=== PATIENT | female | born 1975 | race American Indian/Alaskan Native ===

== ENCOUNTER 2021-06-02 22:09 | Emergency (ER) | payer MEDICAID ==
[2021-06-02] MEDS ORDERED: ADENOSINE 6 MG/2 ML INJ ONE ×2 (23:01→23:02)
[2021-06-02] MEDS ORDERED: SODIUM CHLORIDE 0.9% 1000 ML 1,000 ML IV ONE (23:11)
[2021-06-02] MEDS ORDERED: ADENOSINE 6 MG/2 ML INJ IV ONE (23:11)
--- NOTE | 2021-06-02 23:16 | Emergency Department Report ---
ED Palpitations HPI - General Chief Complaint: Arrhythmia/Palpitations Stated Complaint: SVT Time Seen by Provider: 06/02/21 22:32 Source: EMS Mode of arrival: Stretcher Limitations: No Limitations - History of Present Illness Initial Comments: 46-year-old female, history of SVT, presents to the ED with palpitations. Patient arrived via EMS. They were unable to give any medications en route due to being unable to establish an IV. Vagal maneuvers were attempted without success. Patient heart rate in the 180s-190s. Patient reports of palpitations for a couple of hours now. She denies any chest pain or shortness of breath. Patient states she had a first episode of SVT last month. She was admitted at that time and prescribed metoprolol. However, patient did not take the metoprolol. She did take the first dose when she initially began to feel her heart racing tonight. Patient states her family told her that she passed out at some point prior to EMS arrival. MD Complaint: "heart racing" -: hour(s) (3) Context: occured during rest Arrythmia History: SVT Associated Symptoms: syncope. denies: chest pain, shortness of breath Treatments Prior to Arrival: vagal maneuvers - Related Data Home Medications Medication Instructions Recorded Confirmed Last Taken Glipizide/Metformin HCl 1 each PO DAILY 04/26/21 04/26/21 Unknown [glipiZIDE-Metformin 2.5-250 mg] hydroCHLOROthiazide 12.5 mg PO DAILY 04/26/21 04/26/21 Unknown [Hydrochlorothiazide] lisinopriL [Zestril TAB] 40 mg PO QDAY 04/26/21 04/26/21 Unknown Previous Rx's Medication Instructions Recorded Last Taken Type Aspirin [Aspirin BABY CHEW TAB] 81 mg PO QDAY tab.chew 04/26/21 Unknown Rx Metoprolol Succinate [Toprol Xl] 25 mg PO DAILY #30 tab.er.24h 04/26/21 Unknown Rx Allergies Allergy/AdvReac Type Severity Reaction Status Date / Time No Known Allergies Allergy Verified 06/02/21 22:44 ED Review of Systems ROS: Stated complaint: SVT Other details as noted in HPI Comment: All other systems reviewed and negative Constitutional: denies: fever Respiratory: denies: shortness of breath Cardiovascular: palpitations. denies: chest pain ED Past Medical Hx - Past Medical History Hx Hypertension: Yes Hx Diabetes: Yes - Social History Smoking Status: Never Smoker Substance Use Type: None - Medications Home Medications: Home Medications Medication Instructions Recorded Confirmed Last Taken Type Aspirin [Aspirin BABY CHEW TAB] 81 mg PO QDAY tab.chew 04/26/21 Unknown Rx Glipizide/Metformin HCl 1 each PO DAILY 04/26/21 04/26/21 Unknown History [glipiZIDE-Metformin 2.5-250 mg] Metoprolol Succinate [Toprol Xl] 25 mg PO DAILY #30 tab.er.24h 04/26/21 Unknown Rx hydroCHLOROthiazide 12.5 mg PO DAILY 04/26/21 04/26/21 Unknown History [Hydrochlorothiazide] lisinopriL [Zestril TAB] 40 mg PO QDAY 04/26/21 04/26/21 Unknown History ED Physical Exam - General Limitations: No Limitations General appearance: alert, in no apparent distress - Head Head exam: Present: atraumatic, normocephalic - Eye Eye exam: Present: normal appearance, EOMI - ENT ENT exam: Present: mucous membranes moist - Neck Neck exam: Present: normal inspection - Respiratory Respiratory exam: Present: normal lung sounds bilaterally. Absent: respiratory distress - Cardiovascular Cardiovascular Exam: Present: normal rhythm, tachycardia - GI/Abdominal GI/Abdominal exam: Present: soft. Absent: distended, tenderness - Extremities Exam Extremities exam: Present: normal inspection - Neurological Exam Neurological exam: Present: alert, oriented X3 - Psychiatric Psychiatric exam: Present: normal affect, normal mood - Skin Skin exam: Present: warm, dry, intact, normal color ED Course Vital Signs 06/02/21 06/02/21 06/02/21 22:43 22:53 23:00 Temperature 98.4 F Pulse Rate 178 H 178 H Respiratory 19 12 Rate Blood Pressure Blood Pressure 112/87 [Left] O2 Sat by Pulse 100 100 100 Oximetry 06/02/21 06/02/21 06/02/21 23:15 23:31 23:45 Temperature Pulse Rate 107 H 105 H 104 H Respiratory 25 H 15 13 Rate Blood Pressure 124/83 113/77 124/83 Blood Pressure [Left] O2 Sat by Pulse 100 100 100 Oximetry 06/03/21 06/03/21 06/03/21 00:01 00:15 00:28 Temperature Pulse Rate 102 H 105 H 99 H Respiratory 13 17 12 Rate Blood Pressure 124/83 113/77 Blood Pressure [Left] O2 Sat by Pulse 100 100 100 Oximetry 06/03/21 06/03/21 06/03/21 00:30 00:32 00:45 Temperature Pulse Rate 102 H 96 H Respiratory 11 L 25 H Rate Blood Pressure 149/90 125/86 Blood Pressure 149/90 [Left] O2 Sat by Pulse 100 100 Oximetry 06/03/21 06/03/21 06/03/21 00:53 01:01 01:15 Temperature Pulse Rate 96 H 98 H 92 H Respiratory 27 H 23 22 Rate Blood Pressure 127/82 127/82 Blood Pressure 125/86 [Left] O2 Sat by Pulse 100 100 100 Oximetry - Reevaluation(s) Reevaluation #1: 06/03/21 23:55 Repeat EKG shows sinus tachycardia at a rate of 104. No ST changes. ED Medical Decision Making - Lab Data Result diagrams: 06/02/21 23:15 06/02/21 23:15 - EKG Data -: EKG Interpreted by Mi EKG shows normal: axis, intervals Rate: tachycardia (rate 184) - EKG Data Interpretation: nonspecific ST-T wave ronnie - Radiology Data Radiology results: report reviewed, image reviewed - Medical Decision Making 46-year-old female presented to ED in SVT. Patient given 6 mg of adenosine which resulted in resolution of SVT. Repeat EKG shows normal sinus rhythm, no ST changes. Labs are normal. Patient advised to take her metoprolol. Outpatient follow-up advised, return precautions given. - Differential Diagnosis SVT, ACS Critical care attestation.: If time is entered above; I have spent that time in minutes in the direct care of this critically ill patient, excluding procedure time. ED Disposition Clinical Impression: SVT (supraventricular tachycardia) Disposition: 01 HOME / SELF CARE / HOMELESS Is pt being admited?: No Condition: Stable Instructions: Cardiac Ablation, [id number], Supraventricular Tachycardia, Adult, [id number] Referrals: SMITH VU MD [Staff Physician] - 3-5 Days Time of Disposition: 00:25
--- NOTE | 2021-06-02 23:52 | XRay Report ---
CHEST 1 VIEW 06/02/2021 10:34 PM INDICATION / CLINICAL INFORMATION: Palpitations. COMPARISON: 04/26/21. FINDINGS: SUPPORT DEVICES: None. HEART / MEDIASTINUM: The heart size and pulmonary vasculature are normal. LUNGS / PLEURA: Mildly decreased lung volumes without other pulmonary or pleural abnormality. No pneu mothorax. ADDITIONAL FINDINGS: No significant additional findings. IMPRESSION: Mildly decreased lung volumes without other significant abnormality. Signer Name: Ap Ayers MD Signed: 06/02/2021 11:47 PM Workstation Name: [id number]
[2021-06-03 00:02] LABS: BUN/Creatinine Ratio 13; Blood Urea Nitrogen 15 mg/dL (7-17); Calcium 8.8 mg/dL (8.4-10.2); Hemolysis Index 2
[2021-06-03 00:05] LABS: Basophils # (Auto) 0.1 K/mm3 (0.0-0.1); Basophils % (Auto) 1.1 % (0.0-1.8); Eosinophils % (Auto) 0.2 % (0.0-4.3); Hematocrit 35.9 % (30.3-42.9); Lymphocytes # (Auto) 2.3 K/mm3 (1.2-5.4); Lymphocytes % (Auto) 28.6 % (13.4-35.0); Mean Corpuscular HGB Conc 31 % (30-34); Mean Corpuscular Volume 87 fl (79-97); Monocytes # (Auto) 0.5 K/mm3 (0.0-0.8); Monocytes % (Auto) 6.3 % (0.0-7.3); Platelet Count 527 K/mm3 (140-440); Red Blood Count 4.11 M/mm3 (3.65-5.03); Red Cell Distribution Width 17.2 % (13.2-15.2)
[2021-06-03 01:31] VITALS: BP 127/82
== END 2021-06-03 01:35 | disposition home or self-care (01) ==
LOC: ED 22:09
DX: I47.1 Supraventricular tachycardia (principal); I10 Essential (primary) hypertension; E11.8 Type 2 diabetes mellitus with unspecified complications
CPT/HCPCS: 36415; 71045; 80048; 84484; 85025; 93005; 96361; 96374; 99284; J0153; J7030; Q0162